=== PATIENT | male | born 1940 | race Caucasian/White ===

== ENCOUNTER 2016-10-15 19:41 | Emergency (ER) | payer OTHER, MEDICARE ==
[~2016-10-15] VITALS: Ht 171.4 cm; Wt 85.0 kg
[~2016-10-15 19:41] MED LIST: ASPI81TA84 PO; CARV6.2530 PO; DOCU100T10 PO; HYDR-4246 PO; LISI2.5T2 PO; MEXI150C16 PO; MULT-933 PO; NITR0.4T39 SL; PRAV40TA3 PO; WARF5TAB6 PO; WARF5TAB69 PO
--- OUTSIDE RECORDS SUMMARY | 2016-10-15 19:45 | XMS REPORT | Summary of Care ---
Author Author Gokul Finch M.D. Organization Unknown Address [address] [place] [address] [place] [address] Phone Unavailable Care Team Providers Care Editor Managing Director Name Role Phone Gokul Finch M.D. Unavailable Unavailable Alon Tello II Unavailable Unavailable Unavailable Unavailable Functional Status Name Dates Details Functional status health issues are not documented Status: Name Dates Details Cognitive status health issues are not documented Status: Problems Name Dates Details Pyuria (791.9, N39.0) Status: Active Bilateral low back pain with sciatica (724.3, M54.40) Status: Active History of Gross hematuria (599.71, R31.0) Status: Resolved History of hyperparathyroidism (V12.29, Z86.39) Status: Resolved Prophylactic antibiotic (V58.62, Z79.2) Status: Active Elevated PSA (790.93, R97.20) Status: Active Prostate cancer (185, C61) Status: Active Incomplete bladder emptying (788.21, R33.9) Status: Active BPH with obstruction/lower urinary tract symptoms (600.01, N40.1) Status: Active Microhematuria (599.72, R31.29) Status: Active Bilateral kidney stones (592.0, N20.0) Status: Active Medications Name Dates Details Aspirin EC 81 MG Oral Tablet Delayed Release Active Mexiletine HCl - 150 MG Oral Capsule * Refills: 0 Active Carvedilol 6.25 MG Oral Tablet * Refills: 0 Active Warfarin Sodium 5 MG Oral Tablet * Refills: 0 Active Pravachol 40 MG Oral Tablet * Refills: 0 Active Ciprofloxacin HCl - 500 MG Oral Tablet Take 1 tablet BID X 5 days. Start medication two days prior to procedure * Quantity: 10 Refills: 0 Gokul Finch M.D. * Start 10-Sep-2016 Active Allergies and Adverse Reactions Name Dates Details Augmentin (Allergy) Status: Active Flexeril (Allergy) Status: Active Tetanus Toxoids (Allergy) Status: Active Past Medical History Name Dates Details History of CAD (coronary artery disease) (414.00, I25.10) Status: Resolved History of Gross hematuria (599.71, R31.0) Status: Resolved History of hyperlipidemia (V12.29, Z86.39) Status: Resolved History of hyperparathyroidism (V12.29, Z86.39) Status: Resolved History of hypertension (V12.59, Z86.79) Status: Resolved History of kidney stones (V13.01, Z87.442) Status: Resolved History of Left ureteral calculus (592.1, N20.1) Status: Resolved History of Retained ureteral stent (V43.89, Z96.0) Status: Resolved History of Sinus node arrhythmia (427.81, I49.5) Status: Resolved History of stroke (V12.54, Z86.73) Status: Resolved Past history of myocardial infarction (412, I25.2) Status: Resolved Procedures Procedure Dates Details History of Heart Surgery History of Ant Spinal Diskect Osteophytect Lumb Interspace Microdiscect History of Cardioverter-defibrillator Pulse Generator Insertion History of Colonoscopy History of Cystoscopy (Diagnostic) History of Cystoscopy With Ureteroscopy With Lithotripsy History of Ureteral Lithotripsy History of Parathyroid Complete Parathyroidectomy History of Pacemaker Placement Procedures not documented Immunization Name Dates Details Immunizations not documented Family History Name Dates Details Family history of CAD (coronary artery disease) (414.00, I25.10) Status: Active Social History Name Dates Details - Status: Name Dates Details Smoker. current status unknown Vital Signs Date Test Result Details No Known Vitals to report Results Date Description Value Details 02-Sep-2016 09:57 PSA (Reflex To Free) [id number] Comments: Testing performed at : [DA] [facility], [address] [place] [address], [place], [address], , Knit Goods Cutter Hand: POLLO Aragon MD PROSTATE SPECIFIC AG, SERUM 10.6 ng/mL (Above high threshold) Range: 0.0- 4.0 Comments: PlaceFull ECLIA methodology.According to the [place] [employer], Serum PSAshould decrease and remain at undetectable levels afterradical prostatectomy. The AUA defines biochemicalrecurrence as an initial PSA value 0.2 ng/mL or greaterfollowed by a subsequent confirmatory PSA value 0.2 ng/mLor greater. Values obtained with different assay methods orkits cannot be used interchangeably. Results cannot beinterpreted as absolute evidence of the presence or absenceof malignant disease.----- REFLEX CRITERIA Comment Comments: The percent free PSA is performed on a reflex basis onlywhen the total PSA is between 4.0 and 10.0 ng/mL.----- Plan of Care Name Dates Details Planned Observations Planned Goals not documented Planned Encounters Appointment; Provider: Gokul Finch M.D. On 15-Oct-2016 09:45 Instructions Name Dates Details Instructions not documented Encounters Appointment; Gokul Finch M.D. Encounter Diagnosis: Problem not documented On 24-Sep-2016 09:45 Appointment; Gokul Finch M.D. Encounter Diagnosis: Problem not documented On 29-Aug-2016 15:15 Appointment; Gokul Finch M.D. Encounter Diagnosis: Problem not documented On 01-Aug-2016 15:15 Appointment; Gokul Finch M.D. Encounter Diagnosis: Problem not documented On 14-Sep-2015 08:30
--- OUTSIDE RECORDS SUMMARY | 2016-10-15 19:45 | XMS REPORT | Summary of Care ---
Author Author Gokul Finch M.D. Organization Unknown Address [address] [place] [address] [place] [address] Phone Unavailable Care Team Providers Care Taker Away Name Role Phone Gokul Finch M.D. Unavailable [...] History of hyperparathyroidism (V12.29, Z86.39) Status: Resolved Elevated PSA (790.93, R97.20) Status: Active Microhematuria (599.72, R31.29) Status: Active Bilateral kidney stones (592.0, N20.0) Status: Active BPH with obstruction/lower urinary tract symptoms (600.01, N40.1) Status: Active Medications Name Dates Details Aspirin EC 81 MG Oral Tablet Delayed Release Active Mexiletine HCl - 150 MG Oral Capsule * Refills: 0 Active Carvedilol 6.25 MG Oral Tablet * Refills: 0 Active Warfarin Sodium 5 MG Oral Tablet * Refills: 0 Active Pravachol 40 MG Oral Tablet * Refills: 0 Active Ciprofloxacin HCl - 500 MG Oral Tablet TAKE 1 TABLET TWICE DAILY. * Quantity: 60 Refills: 0 Gokul Finch M.D. * Start 01-Aug-2016 Active Allergies and Adverse Reactions Name Dates Details Flexeril (Allergy) Status: Active Tetanus Toxoids (Allergy) [...] unknown Vital Signs Date Test Result Details 01-Aug-2016 15:28 BP Systolic 120 mm[Hg] Status: Comments: Location: ; Position: BP Diastolic 70 mm[Hg] Status: Comments: Location: ; Position: Heart Rate 76 /min Status: Comments: Location: ; Weight 165 lb Status: Body Mass Index Calculated 25.84 kg/m2 Status: Body Surface Area Calculated 1.86 m2 Status: Results Date Description Value Details Results not documented Plan of Care Name Dates Details Planned Observations Planned Goals not documented Planned Encounters Appointment; Provider: Gokul Finch M.D. On 10-Sep-2016 09:00 Appointment; Provider: Gokul Finch M.D. On 29-Aug-2016 15:15 Interventions Provided Medication Changes* Ciprofloxacin HCl - 500 MG Oral Tablet - Start Instructions Name Dates Details Instructions not documented Encounters Appointment; Gokul Finch M.D. Encounter Diagnosis: Problem not documented On 14-Sep-2015 08:30
--- OUTSIDE RECORDS SUMMARY | 2016-10-15 19:45 | XMS REPORT | Summary of Care ---
Author Author Gokul Finch M.D. Organization Unknown Address [address] [place] [address] [place] [address] Phone Unavailable Care Team Providers Care Assistant District Attorney Name Role Phone Gokul Finch M.D. Unavailable [...] History of hyperparathyroidism (V12.29, Z86.39) Status: Resolved Microhematuria (599.72, R31.29) Status: Active Bilateral kidney stones (592.0, N20.0) Status: Active Prophylactic antibiotic (V58.62, Z79.2) Status: Active Elevated PSA (790.93, R97.20) Status: Active BPH with obstruction/lower urinary tract symptoms (600.01, N40.1) Status: Active Incomplete bladder emptying (788.21, R33.9) Status: Active Medications Name Dates Details Aspirin [...] unknown Vital Signs Date Test Result Details 29-Aug-2016 15:27 BP Systolic 132 mm[Hg] Status: Comments: Location: ; Position: BP Diastolic 87 mm[Hg] Status: Comments: Location: ; Position: Heart Rate 81 /min Status: Comments: Location: ; Results Date Description Value Details 02-Sep-2016 09:57 PSA (Reflex To Free) [id number] Comments: Testing performed at : [DA] [facility], [address] [place] [address] [address], [place], [address], , Weatherization And Housing Inspector: POLLO Aragon MD PROSTATE SPECIFIC AG, SERUM 10.6 ng/mL (Above high threshold) Range: 0.0- 4.0 Comments: Aida ECLIA methodology.According to the [place] [employer], Serum PSAshould decrease and remain [...] Encounters Appointment; Provider: Gokul Finch M.D. On 01-Oct-2016 09:45 Interventions Provided Medication Changes* DiazePAM 10 MG Oral Tablet - Completed Instructions Name Dates Details Instructions not documented Encounters Appointment; Gokul Finch M.D. Encounter Diagnosis: Problem not documented On 29-Aug-2016 15:15 Appointment; Gokul Finch M.D. Encounter Diagnosis: Problem not documented On 01-Aug-2016 15:15 Appointment; Gokul Finch M.D. Encounter Diagnosis: Problem not documented On 14-Sep-2015 08:30
--- OUTSIDE RECORDS SUMMARY | 2016-10-15 19:45 | XMS REPORT | Summary of Care ---
Author Author Gokul Finch M.D. Unknown Address [address] [place] [address] [place] [address] Phone Unavailable Care Team Providers Care Donation Worker Name Role Phone Gokul Finch M.D. Unavailable [...] Resolved Elevated PSA (790.93, R97.20) Status: Active Incomplete bladder emptying (788.21, R33.9) Status: Active BPH with obstruction/lower urinary tract symptoms (600.01, N40.1) Status: Active Prostate cancer (185, C61) Status: Active Bilateral kidney stones (592.0, N20.0) Status: Active Microhematuria (599.72, R31.29) Status: Active Medications Name Dates Details Aspirin EC 81 MG Oral Tablet Delayed Release Active Mexiletine HCl - 150 MG Oral Capsule * Refills: 0 Active Carvedilol 6.25 MG Oral Tablet * Refills: 0 Active Warfarin Sodium 5 MG Oral Tablet * Refills: 0 Active Pravachol 40 MG Oral Tablet * Refills: 0 Active Allergies and Adverse Reactions Name Dates [...] to report Results Date Description Value Details Results not documented Plan of Care Name Dates Details Planned Observations Planned Goals not documented Planned Encounters Appointment; Provider: Gokul Finch M.D. On 26-Nov-2016 09:30 Instructions Name Dates Details Instructions not documented Encounters Appointment; Gokul Finch M.D. Encounter Diagnosis: Problem not documented On 01-Oct-2016 09:45 Appointment; Gokul Finch M.D. Encounter Diagnosis: Problem not documented On 24-Sep-2016 09:45 Appointment; Gokul Finch M.D. Encounter Diagnosis: Problem not documented On 29-Aug-2016 15:15 Appointment; Gokul Finch M.D. Encounter Diagnosis: Problem not documented On 01-Aug-2016 15:15 Appointment; Gokul Finch M.D. Encounter Diagnosis: Problem not documented On 14-Sep-2015 08:30
--- OUTSIDE RECORDS SUMMARY | 2016-10-15 19:45 | XMS REPORT | Summary of Care ---
Author Author Jeff PASCUAL, Randa Organization Unknown Address [address] [place], [place] [id number] Phone Unavailable Care Team Providers Care Senior Major Gifts Officer Name Role Phone Stef Horner, Gokul Unavailable Unavailable Alon Tello II Unavailable Unavailable [...]
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
--- OUTSIDE RECORDS SUMMARY | 2016-10-15 19:45 | XMS REPORT | Summary of Care ---
Author Author Gokul Finch M.D. Organization Unknown Address [address] [place] [address] [place] [address] Phone Unavailable Care Team Providers Care Drywall Hanger Helper Name Role Phone Gokul Finch M.D. Unavailable [...] Status: Resolved Microhematuria (599.72, R31.29) Status: Active Elevated PSA (790.93, R97.20) Status: Active Bilateral kidney stones (592.0, N20.0) [...] Parathyroid Complete Parathyroidectomy History of Pacemaker Placement PSA (Reflex To Free) [id number] Ordered: 29-Aug-2016 Immunization Name Dates Details Immunizations not documented [...] Rate 81 /min Status: Comments: Location: ; 01-Aug-2016 15:28 BP Systolic 120 mm[Hg] Status: [...] Details Planned Observations Planned Goals not documented Interventions Provided Labs/Procedures/Imaging* PSA (Reflex To Free) [id number]; To be Done: 29 Aug 2016 Instructions Name Dates Details Instructions not documented Encounters Appointment; Gokul Finch M.D. Encounter Diagnosis: Problem not documented On 01-Aug-2016 15:15 Appointment; Gokul Finch M.D. Encounter Diagnosis: Problem not documented On 14-Sep-2015 08:30
--- OUTSIDE RECORDS SUMMARY | 2016-10-15 19:45 | XMS REPORT | Continuity of Care Document ---
Author Author [facility] Organization [facility] Address Unknown Phone Unavailable Care Team Providers Care Registered Nurse Hh Case Manager Name Role Phone Primary Care Physician Unavailable Source Comments Some departments are not documenting in the electronic medical record. If you do not see the information that you expected, contact Release of Information in the Health Information Management department at [phone] for further assistance in locating additional records.[facility] Active Allergies and Adverse Reactions No Known Allergies Current Medications Prescription Sig. Disp. Refills Start End Date Status Date predniSONE (DELTASONE) 20 Take 20 mg by mouth Active mg tablet daily. mexiletine (MEXITIL) 150 Take 150 mg by mouth Active mg capsule twice daily. warfarin (COUMADIN) 5 mg Take 5 mg by mouth daily. Active tablet carvedilol (COREG) 6.25 Take 6.25 mg by mouth Active mg tablet twice daily with meals. MULTIVITAMIN/FOLIC Take by mouth. Active ACID/DHA (ONE-A-DAY VITACRAVES OMEGA-3 PO) aspirin 81 mg chewable Take 81 mg by mouth Active tablet daily. HYDROcodone-acetaminophen Take 1 Tab by mouth every Active (+) (NORCO) 7.5-325 mg 6 hours as needed. tablet methocarbamol (ROBAXIN) Take 750 mg by mouth Active 750 mg tablet three times daily. gabapentin (NEURONTIN) Take 600 mg by mouth Active 300 mg capsule three times daily. Active Problems Problem Noted Date Gait instability 09/27/2013 Social History Tobacco Use Types Packs/Day Years Used Date Former Smoker Cigarettes 0.1 50 Quit: 07/08/2012 Smokeless Tobacco: Never Used Alcohol Use Drinks/Week oz/Week Comments Yes 1 Standard 0.5 quit 1986 drinks or equivalent Last Filed Vital Signs Vital Sign Reading Time Taken Blood Pressure 128/83 09/27/2013 10:01 AM CDT Pulse 73 09/27/2013 10:01 AM CDT Temperature - - Respiratory Rate - - Height 1.702 m (5' 7") 09/27/2013 10:01 AM CDT Weight 86.637 kg (191 lb) 09/27/2013 10:01 AM CDT Body Mass Index 29.91 09/27/2013 10:01 AM CDT Oxygen Saturation - - Plan of Care Health Maintenance Due Date Last Done Comments Physical (Comprehensive) 1949 Exam Pertussis Vaccine 1953 Tetanus Vaccine 1959 Colorectal Cancer 1992 Screening Shingles Vaccine 2002 Abdominal Aortic Aneurysm 2007 Screening Prevnar/Pneumovax (#1) 2007 Influenza Vaccine 03/06/2017 Results from Last 3 Months Not on file
--- OUTSIDE RECORDS SUMMARY | 2016-10-15 19:45 | XMS REPORT | Summary of Care ---
Author Author Gokul Finch M.D. Organization Unknown Address [address] [place] [address] [place] [address] Phone Unavailable Care Team Providers Care Associate Dentist Name Role Phone Gokul Finch M.D. Unavailable [...] Details 02-Sep-2016 09:57 PSA (Reflex To Free) [id number] Comments: Testing performed at : [DA] [facility], [address] [place] [address], [place], [address], , Guard Chief: POLLO Aragon MD PROSTATE SPECIFIC AG, SERUM 10.6 ng/mL (Above high threshold) Range: 0.0- 4.0 Comments: [facility]ida ECLIA methodology.According to the [place] [employer], Serum PSAshould decrease and remain [...] Details Planned Observations Planned Goals not documented Instructions Name Dates Details Instructions not documented Encounters Appointment; Gokul Finch M.D. Encounter Diagnosis: Problem not documented On 29-Aug-2016 15:15 Appointment; Gokul Finch M.D. Encounter Diagnosis: Problem not documented On 01-Aug-2016 15:15 Appointment; Gokul Finch M.D. Encounter Diagnosis: Problem not documented On 14-Sep-2015 08:30
--- OUTSIDE RECORDS SUMMARY | 2016-10-15 19:46 | XMS REPORT | Continuity of Care Document ---
Author Author [facility] Organization [facility] Address Unknown Phone Unavailable Support Name Relationship Address Phone CHAZ BUSTOS II, MD Caregiver [address] [facility] [address] [place] [phone] BRAYDEN COLBY MD Caregiver [address] [place] [phone] SUSI PERAZA Next Of Kin [address] [place] [id number] Insurance Providers Payer Name Policy Number Subscriber Name Relationship Medicare [id number] Chaz Peraza 18 Self [place] [id number] Chaz Peraza 18 Self Advance Directives Directive Response Recorded Date/Time Advanced Directives Type None 06/03/14 5:22pm Problems Medical Problems Problem Onset Date Status TIA (transient ischemic attack) Unknown Active Mild anemia Unknown Active Mild anemia Unknown Active Drug reaction Unknown Active Medications Medication Dose Route Sig Days/Qty Instructions Order Date Discontinued Date Status Metoprolol Succinate 04/30/08 11/20/09 Discontinued Warfarin Sodium 04/30/08 11/20/09 Discontinued Niacin 500 Mg PO BEDTIME 03/14/10 10/11/12 Discontinued Valsartan 40 Mg PO DAILY 03/14/10 01/26/12 Discontinued Warfarin Sodium 5 Mg PO DAILY 03/14/10 Active Aspirin 81 Mg PO DAILY 03/14/10 Active Carvedilol 3.125 Mg PO TWICE A DAY 03/14/10 10/11/12 Discontinued Fish Oil/[place]-3 Fatty Acids 1 Cap PO DAILY 03/14/10 02/21/13 Discontinued Pravastatin Sodium 40 Mg PO BEDTIME 03/14/10 02/22/13 Discontinued Mexiletine Hcl 150 Mg PO TWICE A DAY 03/14/10 Active [Coreg] PO 08/15/10 08/19/10 Discontinued Carvedilol 3.125 Mg PO TWICE A DAY 10/11/12 12/03/12 Discontinued Rivaroxaban 20 Mg PO DAILY 10/11/12 10/19/12 Discontinued Cephalexin Monohydrate 500 Mg PO THREE TIMES A DAY 10/11/12 Discontinued Warfarin Sodium 10 Mg PO EVERY OTHER DAY 10/11/12 Active Hydrocodone Bit/Acetaminophen 1 Tab PO NEEDED 10/18/12 05/10/14 Discontinued Phenazopyridine Hcl 200 Mg PO Every 6 Hours 10/18/12 12/02/12 Discontinued [Lovenox] 12/02/12 02/21/13 Discontinued Carvedilol 6.25 Mg PO TWICE A DAY 12/03/12 Active Hydromorphone HCl EVERY 4 HOURS 06/03/14 Active Amoxicillin/Potassium Clav 1 Tab PO TWICE A DAY TAKE WITH MEALS Active Cyclobenzaprine HCl 1 Tab PO THREE TIMES A DAY 06/03/14 Active Prednisone 60 Mg PO GIVE WITH BREAKFAST 5 Days 06/03/14 Active Clindamycin HCl 1 Cap PO FOUR TIMES DAILY 5 Days TAKE WITH A FULL GLASS OF WATER TO AVOID ESOPHAGEAL 06/03/14 Active Social History Social History Problem Response Recorded Date/Time Smoking Status Never smoker 06/03/2014 5:35pm Chewing Tobacco Status No 02/21/2013 12:05pm Hx Substance Use No 06/03/2014 5:35pm Hx Alcohol Use No 06/03/2014 5:35pm Has the pt used tobacco in the last 12 months No 02/21/2013 12:05pm Query Response Start Date Stop Date Smoking Status Never smoker Hospital Discharge Instructions No hospital discharge instructions. Plan of Care No plan of care. Functional Status Query Response Date Recorded Physical Hygiene Self June 03, 2014 5:35pm Disabilities Visual June 03, 2014 5:35pm Devices Used Glasses June 03, 2014 5:35pm Dressing Self June 03, 2014 5:35pm Ambulation Self June 03, 2014 5:35pm Diet Self June 03, 2014 5:35pm Mental Status Alert June 03, 2014 6:17pm Disabilities Visual June 03, 2014 5:35pm Devices Used Glasses June 03, 2014 5:35pm Physical Hygiene Self June 03, 2014 5:35pm Dressing Self June 03, 2014 5:35pm Ambulation Self June 03, 2014 5:35pm Diet Self June 03, 2014 5:35pm Allergies, Adverse Reactions, Alerts Allergen Type Severity Reaction Status Last Updated Tetanus Vaccines & Toxoid Allergy Unknown Active 06/03/14 Immunizations Name Given Type Hx Influenza Vaccination Y NOV 14 Historical Hx Pneumococcal Vaccination Y JUL 2012 Historical Hx Tetanus, Diptheria, Pertussis N ALLERGIC Historical Hx Influenza Vaccination Y May Historical Hx Tetanus Diptheria N ALLERGY TO TETANUS Historical Hx Tetanus, Diptheria, Pertussis N ALLERGIC Historical Vital Signs Acute Vital Signs Vital Response Date/Time Temperature (Fahrenheit) 97.4 deg F (96.8 - 99.1) Temperature (Calculated Celsius) 36.75020 degrees C (36.0 - 37.3) Pulse Rate (adult) 70 bpm (60 - 100) Respiratory Rate 24 breaths/min (10 - 20) O2 Sat by Pulse Oximetry 99 % (90 - 100) Blood Pressure 112/67 mm Hg Height 5 ft 8 in Weight 178 lb Body Mass Index 27.0 kg/m^2 Results Test Source Date Result Interp. Ref. Range Comments Activated Partial Thromboplast Time October 20, 2012 6:08am 30.7 SEC N 24- 36 COMMENT SCU WILL CALL Alanine Aminotransferase (ALT/SGPT) May 10, 2014 4:02pm 28 U/L N 21 -72 Albumin May 10, 2014 4:02pm 3.5 G/DL N 3.5-5.0 Albumin/Globulin Ratio May 10, 2014 4:02pm 1.3 RATIO N 1.1-2.2 Alkaline Phosphatase May 10, 2014 4:02pm 54 U/L N 38-126 Anion Gap May 10, 2014 4:02pm 7 MEQ/L N 5-15 Aspartate Amino Transf (AST/SGOT) May 10, 2014 4:02pm 20 U/L N 17- 59 BUN/Creatinine Ratio May 10, 2014 4:02pm 12 RATIO N 6-26 Basophils # (Auto) May 10, 2014 4:02pm 0.1 T/MM3 N 0-0.2 Basophils (%) (Auto) May 10, 2014 4:02pm 1.1 % N 0-2 Blood Urea Nitrogen May 10, 2014 4:02pm 14.0 MG/DL N 9-20 Calcium Level May 10, 2014 4:02pm 8.5 MG/DL N 8.4-10.2 Calculated Osmolality May 10, 2014 4:02pm 275 MOSM/KG N 261-280 Carbon Dioxide Level May 10, 2014 4:02pm 30 MEQ/L N 22-30 Chloride Level May 10, 2014 4:02pm 106 MEQ/L N 98-107 Creatinine May 10, 2014 4:02pm 1.2 MG/DL N 0.8-1.5 Differential Total Cells Counted April 30, 2008 9:20pm 100 % - Eosinophils # (Auto) May 10, 2014 4:02pm 0.2 T/MM3 N 0-0.5 Eosinophils (%) (Auto) May 10, 2014 4:02pm 3.2 % N 0-4 Erythrocyte Sedimentation Rate June 14, 2012 6:15pm 4 MM/HR N 0-15 Globulin May 10, 2014 4:02pm 2.8 G/DL N 2.4-3.6 Glucose Level May 10, 2014 4:02pm 83 MG/DL N 75-110 Hematocrit May 10, 2014 4:02pm 37.2 % L 41-53 Hemoglobin May 10, 2014 4:02pm 12.1 GM/DL L 13.5-17.5 Ionized Calcium (Measured) December 03, 2012 9:25am 1.42 MMOL/L H 1.12-1.32 Lactate Dehydrogenase June 14, 2012 6:15pm 542 U/L N 313-618 Lymphocytes # (Auto) May 10, 2014 4:02pm 1.7 T/MM3 N 1-4.8 Lymphocytes # (Manual) April 30, 2008 9:20pm 3.2 T/MM3 N 1-4.8 Lymphocytes % (Manual) April 30, 2008 9:20pm 35.0 % N 23-45 Lymphocytes (%) (Auto) May 10, 2014 4:02pm 36.4 % N 23-45 Mean Corpuscular Hemoglobin May 10, 2014 4:02pm 30.0 UUG N 26-34 Mean Corpuscular Hemoglobin Concent May 10, 2014 4:02pm 32.5 GM/DL N 31-37 Mean Corpuscular Volume May 10, 2014 4:02pm 92.1 UM3 N 80-100 Mean Platelet Volume May 10, 2014 4:02pm 10.2 UM3 N 9.4-12.4 Monocytes # (Auto) May 10, 2014 4:02pm 0.4 T/MM3 N 0-0.8 Monocytes # (Manual) April 30, 2008 9:20pm 0.2 T/MM3 N 0-0.8 Monocytes % (Manual) April 30, 2008 9:20pm 2.0 % N 0-9.0 Monocytes (%) (Auto) May 10, 2014 4:02pm 9.5 % H 0-9.0 Neutrophils # (Auto) May 10, 2014 4:02pm 2.3 T/MM3 N 1.8-7.7 Neutrophils # (Manual) April 30, 2008 9:20pm 5.7 T/MM3 N 1.8-7.7 Neutrophils % (Manual) April 30, 2008 9:20pm 63.0 % N 33-66 Neutrophils (%) (Auto) May 10, 2014 4:02pm 49.8 % N 33-66 Parathyroid Hormone (Intact) December 09, 2012 4:07pm 48.6 PG/ML N 7.5-53.5 Platelet Count May 10, 2014 4:02pm 211 T/MM3 N 130-400 Potassium Level May 10, 2014 4:02pm 4.2 MEQ/L N 3.6-5 Prothromb Time International Ratio May 10, 2014 4:02pm 1.95 H 0.81- 1.09 THERAPUTIC RANGE=2.00-3.00 FOR ANTI-THROMBOSIS THERAPUTIC RANGE=2.50- 3.50 FOR IMPLANTED VALVE RDW Standard Deviation May 10, 2014 4:02pm 49.5 FL N 36.9-50.2 Red Blood Count May 10, 2014 4:02pm 4.04 M/MM3 L 4.50-5.90 Sodium Level May 10, 2014 4:02pm 143 MEQ/L N 134-144 Stone Analysis (T) August 20, 2010 9:54am Ref lab rpt scanned - -- - 08/23/10 1523 ---STONE previously reported as: SEND OUT Thyroid Stimulating Hormone (TSH) June 14, 2012 6:15pm 1.45 MIU/L N 0.47-4.68 Total Bilirubin May 10, 2014 4:02pm 0.40 MG/DL N 0.20-1.30 Total Creatine Kinase June 14, 2012 6:15pm 132 U/L N 55-170 Total Protein May 10, 2014 4:02pm 6.3 G/DL N 6.3-8.2 Urine Bacteria June 14, 2012 6:19pm Trace H - Urine Bilirubin June 14, 2012 6:19pm Negative - Urine Blood June 14, 2012 6:19pm 4+ H - Urine Collection Type June 14, 2012 6:19pm Voided - Urine Color June 14, 2012 6:19pm Yellow - Urine Culture Indicated June 14, 2012 6:19pm Cult not set up - Urine Glucose (UA) June 14, 2012 6:19pm Negative - Urine Ketones June 14, 2012 6:19pm Negative - Urine Leukocyte Esterase June 14, 2012 6:19pm Trace H - Urine Mucus June 14, 2012 6:19pm Present - Urine Nitrite June 14, 2012 6:19pm Negative - Urine Protein June 14, 2012 6:19pm Negative - Urine RBC June 14, 2012 6:19pm 10-20 /HPF H - Urine Specific [place] June 14, 2012 6:19pm 1.010 L - Urine Squamous Epithelial Cells June 14, 2012 6:19pm Few - Urine Turbidity June 14, 2012 6:19pm Clear - Urine Urobilinogen June 14, 2012 6:19pm Normal EU/DL - Urine WBC June 14, 2012 6:19pm 1-3 /HPF - Urine Yeast January 14, 2008 3:15pm 3+ - LEGAL TRANSCRIBER Urine pH June 14, 2012 6:19pm 7.0 - White Blood Count May 10, 2014 4:02pm 4.6 T/MM3 N 4.5-11.0 Chemistry Specimen Hemolysis May 10, 2014 4:02pm < 15 0-25 0-25 : No Hemolysis.26-70: Slight Hemolysis - can falsely elevate K and Urine Protein. 71-285: Moderate Hemolysis - can falsely elevate K, Troponin I, CA 19-9, PTH, CSF GLucose, and Urine Protein, and can falsely decrease Phenytoin. 286-999: Gross Hemolysis - can falsely elevate K, Troponin I, CA 19-9, PTH, CSF Glucose, and Urine Protine, and can falsely decrease Phenytoin. Recommend specimen recollection. Lab Scanned Report December 10, 2012 7:30am LAB TEST FORM REQUEST [id number] - Turbidity May 10, 2014 4:02pm < 20 0-20 Glomerular Filtration Rate Calc May 10, 2014 4:02pm 60 - Immature Granulocyte # (Auto) May 10, 2014 4:02pm 0.00 T/MM3 N 0.00 -0.03 Immature Granulocyte % (Auto) May 10, 2014 4:02pm 0.0 % N 0.0-0.5 Icterus Index May 10, 2014 4:02pm < 2 0-7 Blood Culture Blood April 30, 2008 9:20pm NO GROWTH AFTER 5 DAYS Urine Culture Urine, Clean Catch Voided August 15, 2010 10:36pm Helicobacter pylori Rapid Urease Gastric Biopsy January 29, 2012 7:45am Name: CHAZ PERAZA Unit #: [id number] : 1940 Sex: M Loc / Svc: JNENIFER DOS: 05/16/14 Signed Report #: [id number] DIAGNOSTIC IMAGING REPORT TYPE OF EXAM: US CAROTID DOPP COMPLETE Dictated By: ADRIAN JACK MD TECHNIQUE: Grayscale, color and duplex Doppler imaging was performed of the carotid systems bilaterally. RIGHT: PSV ICA 75.7 PDV ICA 26.3 PSV CCA 78.9 PDV CCA 18.6 SVR 1.0 PSV ECA 105 ICA Diameter reduction <20% LEFT: PSV ICA 78.3 PDV ICA 27.5 PSV CCA 85.3 PDV CCA 26.9 SVR 0.9 PSV ECA 94.5 ICA Diameter reduction <20% The right vertebral artery is patent with cephalic flow. The left vertebral artery is patent with cephalic flow. IMPRESSION:Minor plaque is visible on ultrasound. The estimated internal carotid stenosis is 20% or less bilaterally. Doppler velocities are within normal limits. Evidence of normal flow in the vertebral arteries. . Procedures Procedure Status Date Provider(s) ROUTINE VENIPUNCTURE completed 05/10/14 CT HEAD/BRAIN W/O DYE completed 05/10/14 CT NECK SPINE W/O DYE completed 05/10/14 COMPREHEN METABOLIC PANEL completed 05/10/14 COMPLETE CBC W/AUTO DIFF WBC completed 05/10/14 PROTHROMBIN TIME completed 05/10/14 EMERGENCY DEPT VISIT completed 05/10/14 EXTRACRANIAL BILAT STUDY completed 05/16/14 Encounters Encounter Location Date/Time Departed Emergency Room [facility] 06/03/14 5:01pm Registered Clinic [facility] 05/16/14 1:37pm Departed Emergency Room [facility] 05/10/14 2:35pm Recent Diagnosis
--- OUTSIDE RECORDS SUMMARY | 2016-10-15 19:46 | XMS REPORT | Continuity of Care Document ---
Author Author [facility] Organization [facility] Address Unknown Phone Unavailable Allergies Active Description Code Type Severity Reaction Onset Reported/Identified Relationship to Patient Clinical Status Yes Tetanus Vaccines Toxoid Tetanus Vaccines Toxoid Drug Allergy Unknown UNKNOWN 07/08/2012 Yes Cyclobenzaprine Cyclobenzaprine Drug Allergy Severe rash, mouth blisters 08/01/2014 Yes gabapentin gabapentin Drug Allergy Severe rash,mouth blisters 08/01/2014 Medications Problems Date Dx Coded Attending Type Code Diagnosis Diagnosed By 07/09/2012 Zaid Hernadez MD 275.42 HYPERCALCEMIA 07/09/2012 Zaid Hernadez MD 305.1 TOBACCO USE DISORDER 07/09/2012 Zaid Hernadez MD 412 OLD MYOCARDIAL INFARCT 07/09/2012 Zaid Hernadez MD 414.01 CORONARY ATHEROSCLEROSIS OF [place] CORONARY VESSEL 07/09/2012 Zaid Hernadez MD 486 PNEUMONIA, ORGANISM NOS 07/09/2012 Zaid Hernadez MD 490 BRONCHITIS NOS 07/09/2012 Zaid Hernadez MD 786.50 CHEST PAIN NOS 07/09/2012 Zaid Hernadez MD 786.52 PAINFUL RESPIRATION 07/09/2012 Zaid Hernadez MD V12.51 HX-VENOUS THROMBOSIS EMBOLISM 07/09/2012 Zaid Hernadez MD V12.54 PERSONAL HX OF TIA, CEREBRAL INFARCTION W/ OUT RES 07/09/2012 Zaid Hernadez MD 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 07/09/2012 Zaid Hernadez MD V45.82 PERCUTANEOUS TRANSLUM CORON ANGIOPLASTY STATUS Procedures Code Description Performed By Performed On 37.98 REPL CARDIODEFIB GENTR Sohail GREEN, Flaquito Zamora 08/01/2014 Results Test Result Range CHEM/HEM PROFILE-BEDSIDE - 07/08/12 19:50 POTASSIUM 3.9 mmol/L 3.5-5.3 METHOD Bedside ANION GAP 13 mmol/L 10-20 METHOD Bedside GLUCOSE 90 mg/dL 70-99 BLOOD UREA NITROGEN 18 mg/dL 7-20 CREATININE 1.2 mg/dL 0.8-1.3 HEMOGLOBIN 13.3 gm/dL 14.0-18.0 HEMATOCRIT 39.0 % 40.0-54.0 SODIUM 142 mmol/L 135-148 CHLORIDE 106 mmol/L 98-110 CARBON DIOXIDE 28 mmol/L 21-32 CALCIUM IONIZED 5.3 mg/dL 4.5-5.3 TROPONIN I BEDSIDE - 07/08/12 19:52 METHOD Bedside TROPONIN I < 0.04 ng/mL < 0.11 CBC W/DIFF - 07/08/12 20:15 EOSINOPHIL # 0.1 k/cumm 0.1-0.5 EOSINOPHIL % 1 % 2-4 GRANULOCYTE # 11.1 k/cumm 2.0-9.0 GRANULOCYTE % 84 % 50-75 LYMPHOCYTE # 1.0 k/cumm 1.0-4.0 LYMPHOCYTE % 8 % 20-30 MEAN CELL HGB 32.1 pg 27.0-33.0 MEAN CELL HGB CONCENTRATION 35.0 g/dL 32.0-37.0 MEAN CELL VOLUME 91.7 fl 80.0-100.0 MONOCYTE # 1.0 k/cumm 0.1-1.0 MONOCYTE % 8 % 4-6 RED BLOOD CELL 4.21 m/cumm 4.00-6.00 RED CELL DISTRIBUTION WIDTH 13.1 % 11.0- 15.6 WHITE BLOOD CELL 13.2 k/cumm 5.0-10.0 HEMOGLOBIN 13.5 gm/dL 14.0-18.0 HEMATOCRIT 38.6 % 40.0-54.0 PLATELET COUNT 255 k/cumm 150-400 CHEM/HEM PROFILE-BEDSIDE - 07/09/12 20:46 POTASSIUM 3.7 mmol/L 3.5-5.3 METHOD Bedside ANION GAP 13 mmol/L 10-20 METHOD Bedside GLUCOSE 111 mg/dL 70-99 BLOOD UREA NITROGEN 18 mg/dL 7-20 CREATININE 1.2 mg/dL 0.8-1.3 HEMOGLOBIN 12.2 gm/dL 14.0-18.0 HEMATOCRIT 36.0 % 40.0-54.0 SODIUM 139 mmol/L 135-148 CHLORIDE 104 mmol/L 98-110 CARBON DIOXIDE 25 mmol/L 21-32 CALCIUM IONIZED 5.4 mg/dL 4.5-5.3 TROPONIN I BEDSIDE - 07/09/12 20:48 METHOD Bedside TROPONIN I < 0.04 ng/mL < 0.11 CBC W/DIFF - 07/09/12 20:49 COMMENT REVIEWED GRANULOCYTE # 14.7 k/cumm 2.0-9.0 GRANULOCYTE % 87 % 50-75 LYMPHOCYTE # 0.6 k/cumm 1.0-4.0 LYMPHOCYTE % 4 % 20-30 MEAN CELL HGB 31.0 pg 27.0-33.0 MEAN CELL HGB CONCENTRATION 33.2 g/dL 32.0-37.0 MEAN CELL VOLUME 93.6 fl 80.0-100.0 MONOCYTE # 1.6 k/cumm 0.1-1.0 MONOCYTE % 10 % 4-6 RED BLOOD CELL 4.06 m/cumm 4.00-6.00 RED CELL DISTRIBUTION WIDTH 13.0 % 11.0- 15.6 WHITE BLOOD CELL 17.0 k/cumm 5.0-10.0 HEMOGLOBIN 12.6 gm/dL 14.0-18.0 HEMATOCRIT 38.0 % 40.0-54.0 PLATELET COUNT 225 k/cumm 150-400 BLOOD CULTURE - 07/09/12 21:55 Uncategorized BLOOD CULTURE - 07/09/12 22:03 Uncategorized UA MICROSCOPIC, NO REFLEX CULT - 07/09/12 22:49 UA MUCUS 4+ NEG TO 1+ UA RBC 5-10 rbc/hpf 0 - 3 UA VOLUME FOR EXAM 12.0 mL (12mL STD) UA WBC 2-5 wbc/hpf 0 - 5 INFLUENZA A OIA - INFLUENZA B OIA - 07/09/12 22:49 Uncategorized VIRUS RESPIRATORY SCREEN - 07/10/12 00:00 Uncategorized AG STREPTOCOCCUS PNEUMONIAE - 07/10/12 00:00 Uncategorized CALCIUM IONIZED - 07/10/12 07:15 CALCIUM IONIZED 5.1 mg/dL 4.5-5.3 METABOLIC PANEL, COMPREHN - 07/10/12 07:15 POTASSIUM 3.8 mmol/L 3.5-5.3 EST GFR (MDRD) > 60 mL/min > 59 ANION GAP 7 mmol/L 5-15 EST CrCl (CG) 55 mL/min > 59 GLUCOSE 99 mg/dL 70-99 CALCIUM 9.2 mg/dL 8.5-10.1 BLOOD UREA NITROGEN 19 mg/dL 7-20 CREATININE 1.2 mg/dL 0.8-1.3 SODIUM 141 mmol/L 135-148 CHLORIDE 107 mmol/L 98-110 AST/SGOT 9 Units/L 10-37 ALT/SGPT 11 Units/L < 66 CARBON DIOXIDE 27 mmol/L 21-32 TOTAL PROTEIN 6.5 gm/dL 6.4-8.2 ALBUMIN 2.6 gm/dL 3.4-5.0 BILI TOTAL 0.5 mg/dL 0.0-1.0 ALKALINE PHOSPHATASE TOTAL 53 Units/L 50- 136 LIPID PANEL - 07/10/12 07:15 CHOLESTEROL/HDL RATIO 5.1 < 5.0 LDL CHOLESTEROL 84 mg/dL < 100 VLDL CHOLESTEROL 22 mg/dL < 30 TRIGLYCERIDES 111 mg/dL < 150 CHOLESTEROL 132 mg/dL < 200 HDL CHOLESTEROL 26 mg/dL > 39 PHOSPHORUS - 07/10/12 07:15 PHOSPHORUS 2.1 mg/dL 2.5-4.9 CREATINE KINASE (CK/CPK) - 07/10/12 07:15 CREATINE KINASE (CK/CPK) 41 Units/L < 309 CK MB - 07/10/12 07:15 CK MB 0.6 ng/mL < 4.0 MAGNESIUM - 07/10/12 07:15 MAGNESIUM 2.0 mg/dL 1.8-2.4 THYROID STIM HORMONE (TSH) - 07/10/12 07:15 THYROID STIM HORMONE (TSH) 0.12 uIU/mL 0.34-4.82 TROPONIN I - 07/10/12 07:15 TROPONIN I < 0.02 ng/mL < 0.07 PROTHROMBIN TIME WITH INR - 07/10/12 07:17 INTERNATIONAL NORMAL RATIO 2.8 0.9-1.1 PROTHROMBIN TIME 28.8 sec 9.3-12.2 CBC W/MANUAL DIFF - 07/10/12 07:17 MEAN CELL HGB 31.6 pg 27.0-33.0 MEAN CELL HGB CONCENTRATION 34.2 g/dL 32.0-37.0 MEAN CELL VOLUME 92.4 fl 80.0-100.0 RED BLOOD CELL 3.67 m/cumm 4.00-6.00 RED CELL DISTRIBUTION WIDTH 13.1 % 11.0- 15.6 WHITE BLOOD CELL 13.6 k/cumm 5.0-10.0 HEMOGLOBIN 11.6 gm/dL 14.0-18.0 HEMATOCRIT 33.9 % 40.0-54.0 PLATELET COUNT 186 k/cumm 150-400 MANUAL DIFF(O) - 07/10/12 07:17 BASOPHIL # 0.1 k/cumm 0.0-0.2 BASOPHIL % 1 % 0-1 GRANULOCYTE # 11.7 k/cumm 2.0-9.0 LYMPHOCYTE # 1.4 k/cumm 1.0-4.0 LYMPHOCYTE % 10 % 20-30 DIFFERENTIAL MANUAL MONOCYTE # 0.4 k/cumm 0.1-1.0 MONOCYTE % 3 % 4-6 OVALOCYTES NOTED SEGMENTED NEUTROPHIL % 86 % 50-70 HEMOGLOBIN A1C - 07/10/12 07:17 HEMOGLOBIN A1C 5.5 % < 5.7 CREATINE KINASE (CK/CPK) - 07/10/12 13:49 CREATINE KINASE (CK/CPK) 42 Units/L < 309 CK MB - 07/10/12 13:49 CK MB < 0.5 ng/mL < 4.0 TROPONIN I - 07/10/12 13:49 TROPONIN I < 0.02 ng/mL < 0.07 PROTHROMBIN TIME WITH INR - 07/11/12 05:00 INTERNATIONAL NORMAL RATIO 2.2 0.9-1.1 PROTHROMBIN TIME 23.1 sec 9.3-12.2 CBC - 07/11/12 05:00 MEAN CELL HGB 30.7 pg 27.0-33.0 MEAN CELL HGB CONCENTRATION 33.3 g/dL 32.0-37.0 MEAN CELL VOLUME 92.0 fl 80.0-100.0 RED BLOOD CELL 3.62 m/cumm 4.00-6.00 RED CELL DISTRIBUTION WIDTH 13.0 % 11.0- 15.6 WHITE BLOOD CELL 11.4 k/cumm 5.0-10.0 HEMOGLOBIN 11.1 gm/dL 14.0-18.0 HEMATOCRIT 33.3 % 40.0-54.0 PLATELET COUNT 222 k/cumm 150-400 Encounters ACCT No. Visit Date/Time Discharge Status Pt. Type Provider Facility Loc./Unit Complaint [id number] 08/01/2014 12:04:00 2014 11:26:00 DIS Outpatient Sohail GREEN, Flaquito Zamora [facility] [id number] 07/09/2012 22:33:00 2012 15:45:00 DIS Inpatient Zaid Hernadez MD [facility] W.10TN [id number] 07/08/2012 19:33:00 2012 23:45:00 DIS Emergency Karl Weston DO [facility] W.EDS
--- OUTSIDE RECORDS SUMMARY | 2016-10-15 19:46 | XMS REPORT | Continuity of Care Document ---
Author Author [facility] Organization [facility] Address Unknown Phone Unavailable Support Name Relationship Address Phone GLORIA SERRANO MD Caregiver [address] [place] [phone] CHAZ BUSTOS II, MD Caregiver [address] [facility] [place] [phone] SUSI PERAZA Next Of Kin [address] [place] [id number] Insurance Providers Payer Name Policy Number Subscriber Name Relationship Medicare [id number] Chaz Peraza 20 Self [place] [id number] Chaz Peraza 20 Self Problems Medical Problems Problem Onset Date Status TIA (transient ischemic attack) Unknown Active Mild anemia Unknown Active Medications Medication Dose Route Sig [...] TWICE A DAY 03/14/10 10/11/12 Discontinued Fish Oil/[place]-3 Fatty Acids 1 Cap PO DAILY 03/14/10 [...] Mg PO TWICE A DAY 12/03/12 Active Social History Social History Problem Response Recorded Date/Time Smoking Status Former smoker 05/10/2014 2:35pm When did patient STOP smoking? TWO YEARS AGO 05/10/2014 2:35pm Chewing Tobacco Status No 02/21/2013 12:05pm Hx Substance Use No 05/10/2014 2:35pm Hx Alcohol Use No 05/10/2014 2:35pm Has the pt used tobacco in the last 12 months No 02/21/2013 12:05pm Query Response Start Date Stop Date Smoking Status Former smoker Hospital Discharge Instructions No hospital discharge instructions. Plan of Care No plan of care. Functional Status Query Response Date Recorded Physical Hygiene Self May 10, 2014 2:35pm Disabilities Visual May 10, 2014 2:35pm Devices Used Glasses May 10, 2014 2:35pm Dressing Self May 10, 2014 2:35pm Ambulation Self May 10, 2014 2:35pm Diet Self May 10, 2014 2:35pm Mental Status Alert Oriented May 10, 2014 2:35pm Disabilities Visual May 10, 2014 2:35pm Devices Used Glasses May 10, 2014 2:35pm Physical Hygiene Self May 10, 2014 2:35pm Dressing Self May 10, 2014 2:35pm Ambulation Self May 10, 2014 2:35pm Diet Self May 10, 2014 2:35pm Allergies, Adverse Reactions, Alerts Allergen Type Severity Reaction Status Last Updated Tetanus Vaccines & Toxoid Allergy Unknown Active 05/10/14 Immunizations Name Given Type Hx Influenza Vaccination Y JUL 2012 Historical Hx Pneumococcal Vaccination Y JUL 2012 Historical Hx Tetanus, Diptheria, Pertussis N ALLERGIC Historical Hx Influenza Vaccination Y JUL 2012 Historical Hx Tetanus Diptheria N ALLERGY TO TETANUS Historical Hx Tetanus, Diptheria, Pertussis N ALLERGIC Historical Vital Signs Acute Vital Signs Vital Response Date/Time Temperature (Fahrenheit) 97.7 deg F (96.8 - 99.1) Temperature (Calculated Celsius) 36.71875 degrees C (36.0 - 37.3) Pulse Rate (adult) 63 bpm (60 - 100) Respiratory Rate 16 breaths/min (10 - 20) O2 Sat by Pulse Oximetry 97 % (90 - 100) Blood Pressure 106/57 mm Hg Height 5 ft 8 in [...] 6:19pm 10-20 /HPF H - Urine Specific [place] June 14, 2012 6:19pm 1.010 L - Urine Squamous Epithelial Cells June 14, 2012 6:19pm Few - Urine Turbidity June 14, 2012 6:19pm Clear - Urine Urobilinogen June 14, 2012 6:19pm Normal EU/DL - Urine WBC June 14, 2012 6:19pm 1-3 /HPF - Urine Yeast January 14, 2008 3:15pm 3+ - [employer] Urine pH June 14, 2012 6:19pm 7.0 [...] 10, 2012 7:30am LAB TEST FORM REQUEST [id number] - Turbidity May 10, 2014 4:02pm < [...] 2012 7:45am Name: CHAZ PERAZA Unit #: [id number] : 1940 Sex: M Loc / Svc: ED DOS: 05/10/14 Signed Report #: [id number] DIAGNOSTIC IMAGING REPORT TYPE OF EXAM: CT CERVICAL SPINE W/O CONTRAST Dictated By: PETRA DE LA TORRE MD INDICATION: ITS.REASON: fall, LOC CT CERVICAL SPINE W/O CONTRAST: Comparison: None Technique: Axial CT images through the cervical spine were performed without contrast. Coronal and sagittal reformatted images were also obtained. FINDINGS: The alignment of the cervical spine is abnormal with grade 1 anterolisthesis of C4 on C5, probably degenerative. There is also apex right scoliosis. Multilevel degenerative changes are present with cystic changes in multiple vertebra. There is no evidence of acute fracture or subluxation of the cervical spine. The atlantoaxial articulation, dens, and upper cervical spine demonstrate no subluxation. The paraspinal soft tissues and spinal canal appear unremarkable. IMPRESSION: No acute traumatic abnormality of the cervical spine. . Procedures No known history of procedures. Encounters Encounter Location Date/Time Departed Emergency Room [facility] 05/10/14 2:35pm Recent Diagnosis
[2016-10-15 20:00] VITALS: Ht 171.4 cm; Wt 85.0 kg
--- NOTE | 2016-10-15 20:05 | NUR ---
PROVIDER DR GALINDO AT BEDSIDE TO ASSESS PT.
--- NOTE | 2016-10-15 20:11 | ERPDOC ---
Departure Disposition Decision Date: Oct 15, 2016 Disposition Decision Time: 22:18 Disposition: 01 DISCHARGED HOME, SELF-CARE Impression Impression Impression: Primary Impression: Strain of left inguinal muscle Encounter type: initial encounter Qualified Codes: S39.013A - Strain of muscle, fascia and tendon of pelvis, initial encounter Severity: Moderate Condition: Stable Seen By: Physician only Referrals: CHAZ BUSTOS II, MD (Family) Patient Instructions: Muscle Strain (ED) Problems/Meds/Labs Reviewed?: Yes Medications reviewed and manag: Yes Additional Instructions: Recommend Aleve 440 mg twice a day next 3 days otherwise may use ibuprofen 600 mg every 8 hours, NOT BOTH May use baclofen 20 mg 3 times a day Follow up care ordered?: Yes Mental Status: Alert, Oriented Scripts Baclofen (Baclofen) 20 Mg Tablet 1 TAB PO TID Y for PAIN &/OR SPASM, #15 TAB Prov: BRANDI GALINDO MD 10/15/16 HPI - Fall/Injury General Stated Complaint: FALL/HIP PAIN Time Seen by Provider: 20:11 Source: patient, family Exam Limitations: no limitations HPI - Fall/Injury Initial Comments Patient is a 76-year-old male, presents for evaluation of left hip pain. Patient was getting out of his [place] earlier today lost balance and fell backwards landing on left hip and shoulder. Patient with no shoulder pain, however is complaining of some moderate hip pain so decided to present to the ER for evaluation Occurred At: home Onset: Rapid Duration: 1-3 hrs Pain Scale: Now & Worst: 7/10 Injuries/Pain Location: lower extremity 1 - pain Context: lost balance Loss of Consciousness: no loss of consciousness Allergies: Coded Allergies: cyclobenzaprine (Verified Allergy, Severe, SWELLING TO FACE AND THROAT, 06/21) amoxicillin (Verified Allergy, Mild, HIVES, 10/15/16) clavulanic acid (Verified Allergy, Mild, HIVES, 10/15/16) Tetanus Vaccines and Toxoid (Verified Allergy, Unknown, 10/15/16) Past History Past Medical History Metabolic: hypercholesterolemia, hypertension, other Cardiac: A-fib, DC Respiratory: pneumonia Male: kidney stones Neurological: CVA Musculoskeletal: osteoarthritis Hematologic: DVT Surgical History General: appendix, tonsils Cardiac: cardiac cath, cardiac stent, implantable defib Family History Family PMH: FOUND: other Vaccines Hx Influenza Vaccination: Yes (JUL 2014) Hx Pneumococcal Vaccination: Yes (JUL 2012) Hx Tetanus Diptheria: No (ALLERGY TO TETANUS) Hx Tetanus, Diptheria, Pertuss: No (ALLERGIC) Social History Quit Date: Dec 04, 2010 Substance Use Type: does not use Alcohol Intake: none Sexuality: female partner Review of Systems Constitutional Constitutional: DENIES: appetite decrease, chills, dizziness, fever, weakness Eyes Vision: DENIES: double vision, loss of visual nguyen ENMT Sinuses: DENIES: congestion, rhinorrhea Mouth/Throat: DENIES: scratchy throat, sore throat Cardiovascular Cardiac: DENIES: chest pain, dyspnea on exertion Pulmonary Respiratory: DENIES: cough, dyspnea, sputum, tachypnea GI Upper Abdomen: DENIES: nausea, pain, vomiting Lower Abdomen: DENIES: constipation, diarrhea, pain General: DENIES: frequency, urgency Musculoskeletal General: see HPI Integumentary Skin: DENIES: color change, itching, rash Endocrine Endocrine: DENIES: heat/cold intolerance Hematologic/Lymphatic Hematologic/Lymphatic: DENIES: anemia Physical Exam General General Nourishment: well nourished, well developed General Body Habitus: well groomed Vitals and Pain Weight: Kilograms: Height (feet): 5 Height (inches): 7.00 Triage Pain Scale: RN VS reviewed by Provider: Yes Eyes (brief) Eyes Brief: found: EOMI ENMT (brief) ENMT Brief: FOUND: mucosa moist, normal dentition, NOT FOUND: nasal erythema, pharnyx erythema, tonsillar deviation Neck (brief) Neck: NOT FOUND: adenopathy, spasm, tenderness Respiratory (brief) Respiratory: FOUND: clear all nguyen, equal bilaterally, NOT FOUND: rales, wheezes Cardiovascular (brief) Cardiac: FOUND: regular rate, regular rhythm Capillary Refill: <2 sec Abdomen (brief) Abdominal Brief: FOUND: bowel normo active x4, soft, NOT FOUND: tender Lymphatic (brief) Lymphatic Brief: NOT FOUND: adenopathy Musculoskeletal Joint : Side: Left Joint: hip Joint Findings: FOUND: ROM limited, pain, NOT FOUND: deformity, discoloration, instability, laceration, swelling Back: NOT FOUND: spasm, tenderness Integumentary (brief) Integumentary Brief: FOUND: dry, pink, warm, NOT FOUND: rash Neurologic (brief) Neurological Brief: FOUND: CN w/o gross def to obs, motor-no gross deficits, sensory-no gross deficits Psychiatric (brief) Psychiatric Brief: FOUND: alert, oriented Differential Diagnoses Considering: Dislocation, Fracture Progress Results/Orders Orders Procedure Category Date Status Time Pelvis W/2 View Lt Hip RAD 10/15/16 Resulted 20:14 Ketorolac (Toradol) PHA 10/15/16 Complete 20:15 Baclofen (Baclofen 10 PHA 10/15/16 Complete Mg (Prepack)) 22:30 Medications Current ED Medications Ketorolac Tromethamine (Toradol) 60 mg O ONCE IM Last administered on 20:51; Start 10/15/16 at 20:15; Stop 10/15/16 at 20:16; Status DC Baclofen (BACLOFEN 10 MG (PrePack)) 1 pack O ONCE SENT HOME Last administered on 10/15/16 22:33; Start 10/15/16 at 22:30; Stop 10/15/16 at 22:31; Status DC Progress Progress Patient with no obvious fracture deformity on hip x-rays, patient ambulates with minimal pain after pain medications. We'll discharge patient home, pain medications, follow-up with primary medical physician if not improving in the next 72 hours Xray Xray : Xray: Hip L Interpretation: Normal, Interpreted by BRANDI Smith MD Oct 15, 2016 20:11
[2016-10-15] MEDS ORDERED: KETOROLAC 60mg/2ml INJECTION IM ONE (20:15)
--- OUTSIDE RECORDS SUMMARY | 2016-10-15 20:22 | XMS REPORT | Continuity of Care Document ---
Author Author [facility] Organization [facility] Address Unknown Phone Unavailable Care Team Providers Care Policy Specialist Name Role Phone Primary Care Physician Unavailable Source Comments Some departments are not documenting in the electronic medical record. If you do not see the information that you expected, contact Release of Information in the Health Information Management department at [phone] for further assistance in locating additional records.[facility] Active Allergies and Adverse Reactions No Known [...]
--- OUTSIDE RECORDS SUMMARY | 2016-10-15 20:24 | XMS REPORT | Continuity of Care Document ---
Author Author [facility] Organization [facility] Address Unknown Phone Unavailable Allergies Active Description [...] Zaid Hernadez MD 414.01 CORONARY ATHEROSCLEROSIS OF [place] CORONARY VESSEL 07/09/2012 Zaid Hernadez MD 486 [...] Status Pt. Type Provider Facility Loc./Unit Complaint [id number] 08/01/2014 12:04:00 2014 11:26:00 DIS Outpatient Sohail GREEN, Flaquito Zamora [facility] [id number] 07/09/2012 22:33:00 2012 15:45:00 DIS Inpatient Zaid Hernadez MD [facility] W.[facility] [id number] 07/08/2012 19:33:00 2012 23:45:00 DIS Emergency Karl Weston DO [facility]
--- OUTSIDE RECORDS SUMMARY | 2016-10-15 20:24 | XMS REPORT | Continuity of Care Document ---
Author Author [facility] Organization [facility] Address Unknown Phone Unavailable Support Name Relationship Address Phone GLORIA SERRANO MD Caregiver [address] [place] [phone] CHAZ BUSTOS II, MD Caregiver [address] [facility] [place] [phone] SUSI PERAZA Next Of Kin [address] [place] [address] Insurance Providers Payer Name Policy Number Subscriber Name Relationship Medicare [id number] Chaz Peraza 18 Self [place] [id number] Chaz Peraza 18 Self Problems Medical Problems [...] TWICE A DAY 03/14/10 10/11/12 Discontinued Fish Oil/[place]-3 Fatty Acids 1 Cap PO DAILY 03/14/10 [...] F (96.8 - 99.1) Temperature (Calculated Celsius) 36.81984 degrees C (36.0 - 37.3) Pulse Rate [...] 6:19pm 10-20 /HPF H - Urine Specific [place] June 14, 2012 6:19pm 1.010 L - Urine Squamous Epithelial Cells June 14, 2012 6:19pm Few - Urine Turbidity June 14, 2012 6:19pm Clear - Urine Urobilinogen June 14, 2012 6:19pm Normal EU/DL - Urine WBC June 14, 2012 6:19pm 1-3 /HPF - Urine Yeast January 14, 2008 3:15pm 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
--- OUTSIDE RECORDS SUMMARY | 2016-10-15 20:24 | XMS REPORT | Continuity of Care Document ---
Author Author [facility] Organization [facility] Address Unknown Phone Unavailable Support Name Relationship Address Phone CHAZ BUSTOS II, MD Caregiver [address] [facility] [address] [place] [phone] BRAYDEN COLBY MD Caregiver [address] [place] [phone] SUSI PERAZA Next Of Kin [address] [place] [address] Insurance Providers Payer Name Policy Number Subscriber Name Relationship Medicare [id number] Chaz Peraza 18 Self [place] [id number] Chaz Peraza 18 Self Advance Directives Directive [...] TWICE A DAY 03/14/10 10/11/12 Discontinued Fish Oil/[place]-3 Fatty Acids 1 Cap PO DAILY 03/14/10 [...] F (96.8 - 99.1) Temperature (Calculated Celsius) 36.80363 degrees C (36.0 - 37.3) Pulse Rate [...] 6:19pm 10-20 /HPF H - Urine Specific [place] June 14, 2012 6:19pm 1.010 L - Urine Squamous Epithelial Cells June 14, 2012 6:19pm Few - Urine Turbidity June 14, 2012 6:19pm Clear - Urine Urobilinogen June 14, 2012 6:19pm Normal EU/DL - Urine WBC June 14, 2012 6:19pm 1-3 /HPF - Urine Yeast January 14, 2008 3:15pm 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
--- NOTE | 2016-10-15 20:35 | NUR ---
REPORT RECEIVED FROM MARIJA GUTIERREZ. CARE ASSUMED.
[2016-10-15] MEDS ORDERED: RIVA15TA PO (20:42)
--- NOTE | 2016-10-15 20:51 | NUR ---
MED PT GIVEN INSTRUCTION REGARDING TORADOL.
--- NOTE | 2016-10-15 21:09 | NUR ---
XRY PT TO XRY VIA [place].
--- NOTE | 2016-10-15 21:30 | NUR ---
XRY PT RETURNED.
--- NOTE | 2016-10-15 22:00 | NUR ---
AMBULATION PT ASSISTED STANDBY WITH AMBULATION OF APPROX 20 FEET. PT UTILIZED WALKER FOR STABILITY. PT'S GAIT STEADY, ABLE TO BEAR WT WITHOUT DIFFICULTY. DR GALINDO NOTIFIED.
[2016-10-15] MEDS ORDERED: BACL20TA PO (22:19)
[2016-10-15] MEDS ORDERED: BACLOFEN 10 MG TABLET #3 (PrePack) SENT HOME ONE (22:30)
[2016-10-15 22:35] VITALS: BP 128/77; PULSE 88; RESP 16; TEMP 97.9; O2SAT 95
--- NOTE | 2016-10-15 22:35 | NUR ---
DISMISS PT TAKEN TO PRIVATE CAR VIA WC BY THIS RN. FAMILY ACCOMPANIES. PT DENIES ANY FURTHER QUESTIONS OR CONCERNS.
--- NOTE | 2016-10-16 08:45 | DI ---
Indication: ITS.REASON: fall left hip pain PROCEDURE: PELVIS W/2 VIEW LT HIP: Encounter: Initial Comparison: November 20, 2009 Findings: No acute fracture or dislocation seen. Left femoral neck is slightly foreshortened on the pelvis view. Degenerative and postoperative changes in the lower lumbar spine. Mild degenerative change in both hip joints. Impression: No acute fracture seen. If there is continued pain or concern for hip fracture, CT or MRI may be helpful for further evaluation. .
== END 2016-10-15 22:35 | disposition home or self-care (01) ==
LOC: ED 19:41
DX: S39.013A Strain of muscle, fascia and tendon of pelvis, initial encounter (principal); W01.0XXA Fall on same level from slipping, tripping and stumbling without subsequent striking against object, initial encounter; Y93.89 Activity, other specified; Y92.009 Unspecified place in unspecified non-institutional (private) residence as the place of occurrence of the external cause; Y99.8 Other external cause status
CPT/HCPCS: 73502; 96372; 99283; J1885

== ENCOUNTER → 2016-10-21 | Outpatient (CLI) | payer MEDICARE, OTHER ==
[~2016-10-21] MED LIST changes: +BACL20TA PO; +RIVA15TA PO; -WARF5TAB6 PO
--- NOTE | 2016-10-21 12:07 | DI ---
Indication: ITS.REASON: S39.83XA Other specified injuries of pelvis, initial encounter recent fall with left hip pain PROCEDURE: CT PELVIS W/O CONTRAST: Encounter: Initial Comparison: CT abdomen/pelvis dated July 08, [address] dated January 17, 2015 Technique: Axial noncontrast CT imaging through the pelvis with coronal and sagittal two-dimensional reformats. Three-dimensional surface shaded volume rendered imaging was also created and reviewed. Automated Exposure Control and Iterative Reconstruction dose reducing techniques were utilized. Findings: Postoperative and degenerative changes in the visualized lower lumbar spine. Bony demineralization limiting detection of nondisplaced fractures. Moderate degenerative change in both sacroiliac joints. There is subtle undulation of the cortex of the left inferior pubic ramus suggesting a nondisplaced fracture. There is also very subtle lucency seen in the left superior pubic ramus on coronal image #37 and axial image #58 suspicious for a nondisplaced fracture. No additional acute fracture or dislocation seen. The soft tissues of the pelvis again show some type of cystic collection or adenopathy in the right posterior perirectal region which is present dating back to 2010 and likely of no acute clinical concern. The rectum is moderately distended with stool. Impression: Subtle nondisplaced fractures of the left superior and inferior pubic rami. .
== END ==
LOC: IMA 10:55
PROVIDERS: ATTEND Family Medicine
DX: R93.7 Abnormal findings on diagnostic imaging of other parts of musculoskeletal system (principal); Z91.81 History of falling

== ENCOUNTER 2018-02-17 13:44 | Observation (INO) ==
--- OUTSIDE RECORDS SUMMARY | 2018-02-17 13:58 | External Medical Summary | Clinical Summary ---
:1940 Author Organization [facility] Address [address] [place] [address] Care Team Providers Name Role Phone Nneka Rodriguez MD Unavailable Source Comments Some departments are not documenting in the electronic medical record. If you do not see the information that you expected, contact Release of Information in the Health Information Management department at [phone] for further assistance in locating additional records.[facility] Allergies No Known Allergies Current Medications Prescription Sig. Disp. Refills Start Date End Date Status predniSONE (DELTASONE) 20 Take 20 mg by Active mg tablet mouth daily. mexiletine (MEXITIL) 150 Take 150 mg by Active mg capsule mouth twice daily. warfarin (COUMADIN) 5 mg Take 5 mg by mouth Active tablet daily. carvedilol (COREG) 6.25 mg Take 6.25 mg by Active tablet mouth twice daily with meals. MULTIVITAMIN/FOLIC Take by mouth. Active ACID/DHA (ONE-A-DAY VITACRAVES OMEGA-3 PO) aspirin 81 mg chewable Take 81 mg by Active tablet mouth daily. HYDROcodone-acetaminophen( Take 1 Tab by Active +) (NORCO) 7.5-325 mg mouth every 6 tablet hours as needed. methocarbamol (ROBAXIN) Take 750 mg by Active 750 mg tablet mouth three times daily. gabapentin (NEURONTIN) 300 Take 600 mg by Active mg capsule mouth three times daily. Active Problems Problem Noted Date Gait instability 09/27/2013 Family History Medical History Relation Name Comments Stroke Father Dementia Mother Relation Name Status Comments Father Mother Social History Tobacco Use Types Packs/Day Years Used Date Former Smoker Cigarettes 0.1 50 Quit: 07/08/2012 Smokeless Tobacco: Never Used Alcohol Use Drinks/Week oz/Week Comments Yes 1 Standard drinks or equivalent 0.5 quit 1985 Sex Assigned at Date Recorded Not on file Last Filed Vital Signs Vital Sign Reading Time Taken Blood Pressure 128/83 09/27/2013 10:01 AM CDT Pulse 73 09/27/2013 10:01 AM CDT Temperature - - Respiratory Rate - - Oxygen Saturation - - Inhaled Oxygen Concentration - - Weight 86.6 kg (191 lb) 09/27/2013 10:01 AM CDT Height 170.2 cm (5' 7") 09/27/2013 10:01 AM CDT Body Mass Index 29.91 09/27/2013 10:01 AM CDT Plan of Treatment Health Maintenance Due Date Last Done Comments PHYSICAL (COMPREHENSIVE) EXAM 1949 PERTUSSIS VACCINE 1953 TETANUS VACCINE 1959 COLORECTAL CANCER SCREENING 1992 SHINGLES RECOMBINANT VACCINE (1 of 2) 1992 ABDOMINAL AORTIC ANEURYSM SCREENING 2007 PNEUMONIA (PCV13/PPSV23) VACCINES (1 of 2 - PCV13) 2007 INFLUENZA VACCINE 04/05/2018
--- NOTE | 2018-02-17 15:20 | History & Physical Report ---
History of Present Illness Date: 02/17/18 Chief complaint: Pneumonia HPI: Patient is a 77 yo male who is a direct admit from Dr. Tello for pneumonia. Last night at 3am pt felt very weak and had severe shakes and chills. States he has had " a cough" for quite awhile - coughing up "green stuff." Not SOA. Had been feeling more run down by the end of the day. Went in to see Dr. Tello today and was found to have pneumonia on CXR with elevated WBC. Pt hasn 't eaten anything today. Had vomiting x 2 this am. No h/o COPD. Past h/o smoking. 02 sat 90% in Dr. Tello's office. Patient lives independently with his and is typically very active. He has a h/o [place] w/ stent placement and AICD (on carvedilol and Mexitil). His helminthologist is Dr. Sauceda. Has a h/o prostate cancer with radiation treatment in the past. Takes tamsulosin for BPH. Has had several strokes in the past and takes Plavix and a statin. He is planning on taking his granddaughter back to [place] this weekend so plans to be out of the hospital in no more than 2 days. Review of Systems All systems PM: 10-point ROS was reviewed, no additional remarkable complaints except (weak, chilled, back hurts, cough, vomited this am at 330 and 700. Constipation.) Past Medical History Medical History Updates: h/o prostate cancer (s/p radiation), BPH, CAD (stent x 1), h/o CVA x 3, h/o kidney stones, h/o hyperparathyroidism (s/p parathyroid removal), AICD, HLD, HTN, Type 2 DM - diet controlled Surgical History: tonsils, back surgery, parathyroidectomy, appy, radiatio for prostate cancer, AICD ~2016 Dr Sauceda Family History: F - of stroke M - of "irregular heartbeat" Family History: As Above - Social History Smoking status: Former smoker (quit 6 yrs ago. 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 Medications Home Medications Medication Instructions Recorded Confirmed Type Aspirin (Jahaira) 81 mg PO DAILY #0 03/14/10 02/17/18 History Mexiletine [Mexitil] 150 mg PO BID #0 03/14/10 02/17/18 History Warfarin Sodium 7.5 mg PO HS #0 03/14/10 02/17/18 History Carvedilol [Coreg] 6.25 mg PO BID #0 12/03/12 02/17/18 History Nitroglycerin 0.4 mg SL Q5MIN PRN #0 02/19/15 02/17/18 History Pravastatin Sodium 40 mg PO HS #0 02/19/15 02/17/18 History Docusate Sodium [Stool Softener] 100 mg PO DAILY #0 06/11/16 02/17/18 History Lisinopril 2.5 mg PO DAILY #0 06/11/16 02/17/18 History Multivitamin [Multi-Day Vitamins] 1 tab PO DAILY #0 06/11/16 02/17/18 History Clopidogrel [Plavix] 1 tab PO DAILY 02/17/18 02/17/18 History Tamsulosin HCl [Flomax] 0.4 mg PO DAILY 02/17/18 02/17/18 History Allergies Allergy/AdvReac Type Severity Reaction Status Date / Time cyclobenzaprine Allergy Severe SWELLING Verified 02/17/18 15:59 TO FACE AND THROAT amoxicillin Allergy Mild HIVES Verified 02/17/18 15:59 clavulanic acid Allergy Mild HIVES Verified 02/17/18 15:59 Tetanus Vaccines and Toxoid Allergy Unknown Verified 02/17/18 15:59 Exam Vital Signs: Temperature 98.1 F 02/17/18 14:08 Pulse Rate 83 02/17/18 14:08 Respiratory Rate 16 02/17/18 14:08 Blood Pressure 98/58 02/17/18 14:08 Pulse Oximetry 93 02/17/18 14:08 - Constitutional Present: no acute distress, well nourished, well developed - Routine HEENT Exam Head: Present: normocephalic, atraumatic Eye: Present: EOMI, PERRL ENT: Present: mucous membranes moist, oropharynx clear - Routine Neck Exam Present: supple. Absent: JVD, lymphadenopathy - Routine Respiratory Exam Present: crackles (LLL). Absent: wheezes - Routine Cardiovascular Exam Present: no murmur, irregularly irregular - Routine Abdominal Exam Present: soft, normoactive bowel sounds. Absent: tenderness, distended - Routine Extremities Exam Present: no edema, normal capillary refill - Routine Skin Exam Present: dry, warm - Routine Neurological Exam Present: alert, oriented X3, CN II-XII intact - Routine Psychiatric Exam Present: normal affect, cooperative Results - Labs Labs: Labs performed at Dr. Tello's office earlier today: WBC 12.8 with 12% bands, hemoglobin 13.3, platelets 168 CMP was completely unremarkable other than a chloride slightly elevated at 110 and calculated osmolality slightly high at 283. Lipase was also performed and was normal. UA - neg except 5-10 RBC's/hpf and 1+ bacteria Laboratory Tests 02/17/18 02/17/18 15:01 15:01 Plasma Lactate 1.5 Procalcitonin 2.62 H* Laboratory Tests 02/09/17 10:04 INR 1.44 H Microbiology Results: Microbiology 02/17/18 15:01 Peripheral/Iv Start Gram Stain - Final Not performed - Imaging and Cardiology CT scan - head Additional comments: Date of Exam: 02/17/18 Indication: M62.81 Muscle weakness; Z86.73 History of TIA PROCEDURE: CT head/brain wo con: FINDINGS: Chronic right MCA territory infarct with encephalomalacia. Old right- sided caudate lacunar infarct as well. Mild atrophy. The ventricles are of normal size, shape, and contour for the patient's age. There are scattered areas of low attenuation in the white matter which most likely represent changes from chronic microvascular ischemia. The brainstem, cerebellum, and cerebral hemispheres otherwise have a normal morphology and CT attenuation. There is no evidence of midline displacement. No hemorrhage, signs of acute territorial stroke, mass effect, mass lesions, or edema is evident. The visualized portions of the skull base, midface, and calvarium demonstrate no abnormality. The paranasal sinuses are well aerated and free of significant disease. The tympanic and mastoid cavities appear normal. IMPRESSION: No acute intracranial abnormality or hemorrhage. Stable head CT. Chest x-ray Additional comments: Date of Exam: 02/17/18 INDICATION: R05: Cough PROCEDURE: CHEST 2-VIEWS UPRIGHT (PA & LAT) FINDINGS: New airspace consolidation in the left lower lobe with mild atelectasis in the right lower lobe. Upper lung nguyen are clear. No pneumothorax or effusion. Heart size and mediastinal contours are stable. Left pacemaker defibrillator. Pulmonary vascularity appears normal. Impression: Left lower lobe pneumonia or aspiration. Assessment and Plan (1) LLL pneumonia Current visit: Yes Status: Acute Assessment and Plan: Assessment LLL pneumonia Sepsis (SIRS: leukocytosis and bandemia. Source: pulmonary. Lactate<2) H/o CVA's H/o nephrolithiasis Chronic anticoagulation - ? for paroxysmal arrhythmia Primary hyperparathyroidism- s/p parathyroid gland removal HLD HTN CAD -stent x 1 on clopidogrel and statin AICD - on Mexitil (Dr Sauceda) Type 2 DM, controlled (A1C 5.3% on 09/08/17) Plan Admit, OBS. Bolus NS x 1 L then run at 100cc/hr. Lactate, procal, BC x 2 and INR drawn on admission. Start Levaquin 750mg IV qd. Duonebs, acapella, guaifenesin. O2 to keep sats >90%. No home O2. Patient has Type 2 DM but is well controlled w/o medication. Will defer accuchecks. Pharm consult to manage warfarin. Currently taking 7.5mg daily. Last dose was last evening. Continue home meds except hold Lisinopril due to hypotension. Warfarin for DVT ppx DNR PCP - Dr Tello Discussed with Dr. Rubalcava, Dr. Tello, pharmacy and nursing staff. Records from PCP's office reviewed. DVT Prophylaxis: SCD's, Coumadin Resuscitation Status: Do Not Resuscitate - Physician Narrative Physician: Naheed Rubalcava MD Narrative: Date: 02/17/18 Time: 2114 I have independently evaluated and examined this patient. I reviewed the chart, the patient's history, and the PORTER [facility]INA/PA's documented findings as above. We discussed and formulated the assessment and plan as above with additions as below: Mr. Sung was referred for hospitalization after seeing Dr. Tello in the office today due to generalized weakness and shaking in his arms and legs. In describing the shaking the patient demonstrates rigors. He in addition has had increasing sputum production recently superimposed on chronic cough and wheezing. Chest x-ray obtained by Dr. Tello demonstrated fairly dense left lower lobe infiltrate and white count was elevated with 12% bands. Oxygen saturation was 90% on room air in the office. NAD, alert Respirations nonlabored with coarse breath sounds posterior lung field nearly the entire lung field, no wheezing at the time of my examination. Regular rhythm, S1-S2 Chest x-ray obtained earlier today reviewed by myself demonstrating left lower lobe infiltrate and left-sided pacemaker/defibrillator. CT head also reviewed by myself revealing old right temporal stroke but no acute pathology. In addition to labs outlined above INR was 1.37 today. Community-acquired pneumonia-lactic acid is not elevated, blood pressure low normal; oxygen saturation maintained on room air since admission. Procalcitonin is significantly elevated at 2.62. Levaquin initiated for community-acquired pneumonia; continue breathing treatments. Sputum culture being sent. Patient unsure of indication for warfarin-will need to obtain records from Dr. Sauceda's office Hospital Course Summary Disclaimer: The visit summary below is not to be considered part of the above Progress Note. Hospital Course: 02/17/18 Admit, OBS. Bolus NS x 1 L then run at 100cc/hr. Lactate, procal, BC x 2 and INR drawn on admission. Start Levaquin 750mg IV qd. Duonebs, acapella, guaifenesin. O2 to keep sats >90%. No home O2. Patient has Type 2 DM but is well controlled w/o medication. Will defer accuchecks. Continue home meds except hold Lisinopril due to hypotension. Pharm consult to manage warfarin. Warfarin for DVT ppx DNR
[2018-02-17] MEDS ORDERED: ONDANSETRON 4 MG/2 ML INJECTION IVP PRN (15:37)
[2018-02-17] MEDS ORDERED: NS 1,000 ML IV ONE (15:48)
[2018-02-17] MEDS ORDERED: WARFARIN - PHARMACY CONSULT MC ONE (16:14)
[2018-02-17] MEDS ORDERED: NITROGLYCERIN 0.4 MG SUBLINGUAL TABLET SL PRN (16:47)
[2018-02-17] MEDS: CARVEDILOL 6.25 MG TABLET PO SCH (17:11)
[2018-02-17] MEDS: LEVOFLOXACIN PB 750 MG/150 ML BAG IV SCH (17:22)
[2018-02-17] MEDS ORDERED: WARFARIN 5 MG TABLET PO ONE (18:37)
--- NOTE | 2018-02-17 18:40 | Pharmacy Consult ---
Pharmacy Consult-Warfarin - Laboratory Information 02/17/18 17:01 INR 1.37 H - Consult Information COUMADIN CONSULT (Initial): Dx: Cardiomyopathy Baseline INR = 1.37. Will give Warfarin 10mg today. Recommend enoxaparin to bridge until INR therapeutic. NOTE MADE IN "DOCUMENT" IN EMR. Thank you.
[2018-02-17 18:56] VITALS: BMI 25.0
[2018-02-17] MEDS: ALBUTEROL/IPRATROPIUM 2.5mg-0.5mg/3ml NEB AEROSOL SCH (19:44)
[2018-02-17] MEDS: NS 1,000 ML IV SCH (19:56)
[2018-02-17] MEDS: MEXILETINE 150 MG CAPSULE PO SCH (20:23)
[2018-02-17] MEDS: GUAIFENESIN LA 600 MG TABLET PO SCH (20:23)
[2018-02-17] MEDS: HYDROCODONE/APAP 7.5 MG/325 MG TABLET PO PRN (20:24)
[2018-02-17] MEDS ORDERED: PRAVASTATIN 40 MG TABLET PO SCH (21:00)
[2018-02-17] MEDS ORDERED: WARFARIN 5 MG TABLET PO SCH (21:00)
[2018-02-18] MEDS: NS 1,000 ML IV SCH ×2 (05:27→18:55)
[2018-02-18] MEDS: HYDROCODONE/APAP 7.5 MG/325 MG TABLET PO PRN (05:34)
[2018-02-18] MEDS: ALBUTEROL/IPRATROPIUM 2.5mg-0.5mg/3ml NEB AEROSOL SCH ×3 (07:05→15:35)
--- NOTE | 2018-02-18 07:22 | Pharmacy Consult ---
Pharmacy Consult-Warfarin - Laboratory Information 02/17/18 02/18/18 02/18/18 17:01 04:31 04:31 Hgb 10.8 L D Hct 32.6 L D INR 1.37 H 1.60 H - Consult Information INR increased to 1.6 so we will repeat 10mg dose of warfarin today at noon. Expect therapeutic INR tomorrow. Routine dose should be around 6 to 7.5mg daily. Thanks
[2018-02-18] MEDS ORDERED: POLYETHYL GLYCOL 3350 17gm PACKET PO SCH (09:00)
[2018-02-18] MEDS ORDERED: MULTI-VITAMIN PLAIN TABLET PO SCH (09:00)
[2018-02-18] MEDS ORDERED: DOCUSATE SODIUM 100 MG CAPSULE PO SCH (09:00)
[2018-02-18] MEDS ORDERED: TAMSULOSIN 0.4 MG CAPSULE PO SCH (09:00)
[2018-02-18] MEDS ORDERED: CLOPIDOGREL 75 MG TABLET PO SCH (09:00)
[2018-02-18] MEDS ORDERED: ASPIRIN 81 MG CHEWABLE TABLET PO SCH (09:00)
[2018-02-18] MEDS: MEXILETINE 150 MG CAPSULE PO SCH (10:25)
[2018-02-18] MEDS: GUAIFENESIN LA 600 MG TABLET PO SCH (10:25)
[2018-02-18] MEDS: CARVEDILOL 6.25 MG TABLET PO SCH ×2 (10:26→18:54)
[2018-02-18 11:13] VITALS: RESP 20
[2018-02-18] MEDS ORDERED: WARFARIN 5 MG TABLET PO SCH (12:00)
--- NOTE | 2018-02-18 15:06 | Discharge Summary ---
Discharge Information Date of admission: 02/17/18 13:47 Anticipated date of discharge: 02/18/18 Attending Physician: Sulaiman Nixon MD Primary care physician: Alon Tello II, MD - Discharge Diagnosis (1) LLL pneumonia Status: Acute Problems Reviewed?: Yes Discharge diagnosis LLL pneumonia Associated conditions and complications Sepsis H/o CVA's H/o nephrolithiasis ischemic cardiomyopathy EF 26% Chronic anticoagulation Primary hyperparathyroidism- s/p parathyroid gland removal HLD HTN CAD AICD Type 2 DM, controlled - Laboratory Labs: Dismissal labs 02/18/18 02/18/18 04:31 04:31 WBC 11.9 H RBC 3.33 L Hgb 10.8 L D Hct 32.6 L D Plt Count 137 Sodium 144 Potassium 3.7 Chloride 112 H Carbon Dioxide 23 BUN 18.0 Creatinine 0.8 D - Microbiology 02/17/18 Blood Culture - Preliminary Culture Initiated - Results Pending History of Present Illness HPI: Patient is a 77 yo male who is a direct admit from Dr. Tello for pneumonia. Last night at 3am pt felt very weak and had severe shakes and chills. States he has had " a cough" for quite awhile - coughing up "green stuff." Not SOA. Had been feeling more run down by the end of the day. Went in to see Dr. Tello today and was found to have pneumonia on CXR with elevated WBC. Pt hasn 't eaten anything today. Had vomiting x 2 this am. No h/o COPD. Past h/o smoking. 02 sat 90% in Dr. Tello's office. Patient lives independently with his and is typically very active. He has a h/o [place] w/ stent placement and AICD (on carvedilol and Mexitil). 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 Sauceda. Has a h/o prostate cancer with radiation treatment in the past. Takes tamsulosin for BPH. Has had several strokes in the past and takes Plavix and a statin. He is planning on taking his granddaughter back to [place] this weekend so plans to be out of the hospital in no more than 2 days. For complete details of the H&P refer to that document. Objective Vital signs: Temperature 96.6 F L 02/18/18 07:48 Pulse Rate 60 02/18/18 10:29 Respiratory Rate 20 02/18/18 11:02 Blood Pressure 98/52 02/18/18 10:29 Pulse Oximetry 94 02/18/18 11:02 Height/Weight/BMI: Height 1.7 m Weight 76.8 kg Body Mass Index 25.0 - Constitutional Present: no acute distress, well nourished, well developed - Routine HEENT Exam Head: Present: normocephalic, atraumatic - Routine Respiratory Exam Present: crackles (LLL). Absent: wheezes - Routine Cardiovascular Exam Present: RRR, no murmur - Routine Abdominal Exam Present: soft, non distended, non tender - Routine Extremities Exam Present: no edema, normal capillary refill - Routine Skin Exam Present: dry, warm - Routine Neurological Exam Present: alert, oriented X3 - Routine Lymphatic Exam Lymphatic: Absent: adenopathy - Routine Psychiatric Exam Present: normal affect, cooperative Hospital Course This is a general summary of the patient's hospital course. For more details refer to the complete medical record. Hospital course: 02/17/18 Admit, OBS. Bolus NS x 1 L then run at 100cc/hr. Lactate, procal, BC x 2 and INR drawn on admission. Start Levaquin 750mg IV qd. Duonebs, acapella, guaifenesin. O2 to keep sats >90%. No home O2. Patient has Type 2 DM but is well controlled w/o medication. Will defer accuchecks. Continue home meds except hold Lisinopril due to hypotension. Pharm consult to manage warfarin. Warfarin for DVT ppx DNR 02/18/18 Patient feeling much better today. Has not required any O2. No SOA. Has had 2 doses of Levaquin IV. WIll continue po x 5 days. He'll continue to use his Acapella at home. INR 1.6 today. He's had 10mg daily yesterday and today. Will have him resume 7.5mg daily at home given he is on Levaquin. Repeat INR on Thursday. F/U with Dr. Tello in 1 week. See orders for details. Time spent with patient: discharge greater than 30 minutes Resuscitation Status: Do Not Resuscitate Discharge Plan - Discharge Disposition Discharge Date: 02/18/18 Disposition: 01 Discharged Home, Self-Care *Condition: Stable Reason For Visit (Visit label in EMR): Pneumonia/Observation - Discharge Medications *Discharge Medications: New Levofloxacin [Levaquin] 750 mg PO DAILY #5 tab Continue Aspirin (Jahaira) 81 mg PO DAILY #0 Carvedilol [Coreg] 6.25 mg PO BID #0 Docusate Sodium [Stool Softener] 100 mg PO DAILY #0 Tamsulosin HCl [Flomax] 0.4 mg PO DAILY Warfarin Sodium 7.5 mg PO HS #0 Mexiletine [Mexitil] 150 mg PO BID #0 Pravastatin Sodium 40 mg PO HS #0 Nitroglycerin 0.4 mg SL Q5MIN PRN #0 PRN Reason: CHEST PAIN Multivitamin [Multi-Day Vitamins] 1 tab PO DAILY #0 Lisinopril 2.5 mg PO DAILY #0 Clopidogrel [Plavix] 1 tab PO DAILY - Discharge Packet/Instructions *Diet: Regular/heart healthy/limited sweets *Activity: As tolerated *Pain Management/Treatment: n/a *Wound Care: n/a Additional Instructions: Levaquin (antibiotic) prescription has been sent to your pharmacy. Start it tomorrow. Resume warfarin at the 7.5mg daily dose. Go in for protime/INR lab testing on Thursday. *Expected Signs/Symptoms: Gradual improvement in symptoms *Notify Physician if: you become short of breath or develop high fever *During Business Hours Contact: Dr. Tello's office *After Business Hours Contact: [facility] and have your provider paged *Pending Lab/Results: Follow up w/Provider - Referrals/Follow Up *Referrals/Follow Up: Alon Tello II, MD [Primary Care Provider] - 02/25/18 11:00 am - Patient Handouts - Dismissal Complete Discharge Instructions are:: Complete Physician Narrative - Narrative Physician: Sulaiman Nixon MD Attestation Narrative: Date: 02/18/18 Time: [id number] I have independently interviewed and examined patient prior to discharge. Chart reviewed. Case discussed with CM and my PA. Care plan developed with my supervision; agree with above. Doing much better today. Breathing well-not having SOA, cough, or congestion. Maintaining saturations well on RA. No chest pressure or pain. Appetite increasing. Strength improving. No f/c. Lungs: decreased, no crackles or wheezes. CV: regular AB: soft nt/nd MSE: awake alert appropriate Plan: Medically stable for discharge to home. Continue with levofloxacin for 5 more days (total course of 7 days). Encourage pulmonary toilet. Monitor for signs and symptoms of bleeding due to warfarin use. F/U with Dr Tello in 1 week. See orders for details.
[2018-02-18 16:00] VITALS: BP 109/68; PULSE 64; TEMP 97.2; O2SAT 97
[2018-02-18] MEDS: LEVOFLOXACIN PB 750 MG/150 ML BAG IV SCH (16:02)
[2018-02-18] MEDS ORDERED: MEXILETINE 150 MG CAPSULE PO SCH (17:30)
== END 2018-02-18 18:23 | disposition home or self-care (01) ==
LOC: MED 13:47 → INTOOBSV 13:47 → SUATTDRO 13:47
PROVIDERS: ADMIT Internal Medicine; ATTEND Hospitalist